=== PATIENT | female | born 1980 | race Two or more races ===

== ENCOUNTER 2025-03-02 07:49 | Emergency (ER) | payer SELFPAY ==
[~2025-03-02] VITALS: Ht 167.6 cm; Wt 101.2 kg
[2025-03-02] MEDS: IV NS 1000 ML 1,000 ML IV ONE (08:50)
[2025-03-02] MEDS ORDERED: KETOROLAC TROMETHAMINE 30 MG INJ ONE (08:52)
[2025-03-02] MEDS ORDERED: METOCLOPRAMIDE HCL 10 MG/2 ML VIAL ONE (08:52)
[2025-03-02] MEDS ORDERED: diphenhydrAMINE 50 MG/1 ML VIAL ONE (08:52)
[2025-03-02 08:58] LABS: PLATELET COUNT (AUTO) 224 K/uL (179-408); RED BLOOD CELL COUNT(AUTO) 4.11 MIL/uL (3.63-4.92); RED CELL DISTRIBUTION WIDTH 21.2 % (12.3-17.7); WHITE BLOOD COUNT (AUTO) 5.4 K/uL (3.8-11.8)
[2025-03-02] MEDS: METOCLOPRAMIDE HCL 10 MG/2 ML VIAL IV ONE (08:58)
[2025-03-02] MEDS: KETOROLAC TROMETHAMINE 30 MG INJ IVP ONE (08:58)
[2025-03-02] MEDS: diphenhydrAMINE 50 MG/1 ML VIAL IV ONE (08:58)
[2025-03-02 09:07] LABS: CREATININE 0.8 mg/dL (0.6-1.3); SODIUM SERUM 139.0 mmol/L (136-145); UREA NITROGEN, BLOOD 23.0 mg/dL (7-18)
[2025-03-02 09:13] LABS: ASPARTATE AMINOTRANSFERASE 28.0 U/L (15-37); TOTAL PROTEIN, SERUM 7.9 g/dL (6.4-8.2)
[2025-03-02 09:15] LABS: IRON, SERUM 21.0 ug/dL (50-175)
[2025-03-02 10:27] LABS: EOSINOPHILS % (MANUAL) 1 % (0-8); LYMPHOCYTES % (MANUAL) 35 % (20-40); MONOCYTES % (MANUAL) 6 % (2-10); NEUTROPHILS % (MANUAL) 58 % (42-75); PLATELET ESTIMATE ADEQUATE
[2025-03-02] MEDS ORDERED: SOD FERRIC GLUC COMPLX/SUCROSE 62.5 MG/5 ML AMPUL IV ONE (10:44)
[2025-03-02] MEDS ORDERED: SOD FERRIC GLUC COMPLX/SUCROSE 125 MG in IV NORMAL SALINE 100 ML IV SCH (10:45)
[2025-03-02] MEDS: SOD FERRIC GLUC COMPLX/SUCROSE 125 MG in IV NORMAL SALINE 100 ML IV ONE (10:54)
[2025-03-02 11:26] LABS: *BILIRUBIN,URIN NEGATIVE (NEGATIVE); *CLARITY,URINE CLEAR (CLEAR); *COLOR,URINE LIGHT YELLOW (YELLOW); *KETONES,URINE NEGATIVE (NEGATIVE); *PROTEIN,URINE NEGATIVE (NEGATIVE); *UROBILINOGEN,URINE 0.2 E.U./dl (NORMAL); LEUKOCYTE ESTERASE ,URINE NEGATIVE (NEGATIVE); NITRITE, URINE NEGATIVE (NEGATIVE); UGLUCOSE NEGATIVE (NEGATIVE)
[2025-03-02 11:27] LABS: *BLOOD, URINE TRACE (NEGATIVE)
[2025-03-02 11:42] LABS: SQUAMOUS EPITHELIAL CELL,UR FEW /HPF (NONE SEEN)
[2025-03-02 11:45] VITALS: BP 122/65
[2025-03-02] MEDS ORDERED: LEVOTHYROXINE SODIUM 75 MCG TABLET ONE (12:16)
[2025-03-02] MEDS: LEVOTHYROXINE SODIUM 75 MCG TABLET PO ONE (12:19)
[2025-03-02] MEDS ORDERED: FLAS1KIT2 TP (12:50)
[2025-03-02] MEDS ORDERED: THYR30TA2 PO (12:50)
[2025-03-02] MEDS ORDERED: FLAS1EAC2 TP (12:50)
[2025-03-02] MEDS ORDERED: DIPH25CA83 PO (12:50)
[2025-03-02] MEDS ORDERED: METO-295 PO (12:50)
[2025-03-02] MEDS ORDERED: NAPR500T6 PO (12:50)
[2025-03-02] MEDS ORDERED: FERR325T23 PO (12:50)
[2025-03-02 13:04] VITALS: BP 120/62; O2SAT 98
== END 2025-03-02 13:04 | disposition home or self-care (01) ==
LOC: ER 07:49
DX: G43.909 Migraine, unspecified, not intractable, without status migrainosus (principal); E88.810 Metabolic syndrome; D50.8 Other iron deficiency anemias; R53.1 Weakness; R53.83 Other fatigue; D50.9 Iron deficiency anemia, unspecified; E03.9 Hypothyroidism, unspecified; R11.0 Nausea; Z79.890 Hormone replacement therapy; Z85.850 Personal history of malignant neoplasm of thyroid
CPT/HCPCS: 99284; 96365; 96375; 96361; 96366; 80076; 80048; 81001; 83036; 84439; 83550; 84443; 85007; 85027; 36415; 84481; J1885; J1200; J2765; J2916; J7040; 70030-TC; A4606; A4663